=== PATIENT | male | born 1965 | race Caucasian/White ===

== ENCOUNTER 2024-03-29 15:48 | Inpatient (IN) | payer OTHER, SELFPAY ==
[2024-03-29] VITALS (7 sets, daily range): BP systolic 135–148; BP diastolic 65–94; BMI 28.6; BMI 28.5
[2024-03-29 09:49] LABS: % Basophils 0.5 % (0-2); % Eosinophils 1.6 % (0-6); % Immature Granulocytes 0.4 % (0-0.5); % Monocytes 9.1 % (1.7-9.3); % Neutrophils 70.4 % (42.2-75.2); Absolute Eosinophils 0.1 10^3/uL (0-0.7); Absolute Lymphocytes 1.5 10^3/uL (1.2-3.4); Absolute Monocytes 0.8 10^3/uL (0.1-0.6); Absolute Neutrophils 5.9 10^3/uL (1.4-6.5); Hematocrit 41.5 % (39.0-52.0); Hemoglobin 15.2 g/dL (13.0-18.0); Mean Corp Hgb Conc. 36.6 g/dL (33.0-37.0); Mean Corpuscular Hgb 31.7 pg (27.0-31.0); Mean Corpuscular Volume 86.5 fL (80.0-94.0); Mean Platelet Volume 8.9 fL (7.4-10.4); Nucleated Red Blood Cells % 0 % (-); Platelet Count 234 10^3/uL (130-400); Red Cell Dist. Width 12.1 % (11.5-14.5); White Blood Cell Count 8.4 10^3/uL (4.8-10.8)
[2024-03-29 09:58] LABS: INR 0.98
[2024-03-29 10:08] LABS: ALT (SGPT) 33 U/L (0-50); AST (SGOT) 24 U/L (17-59); Albumin 4.1 g/dl (3.5-5.0); Alkaline Phosphatase 71 U/L (38-126); Blood Urea Nitrogen 14 mg/dl (9-20); Calcium 9.5 mg/dl (8.4-10.2); Carbon Dioxide 25 mmol/L (22-30); Chloride 105 mmol/L (98-107); Glucose 106 mg/dl (70-99); Potassium 4.5 mmol/L (3.5-5.1); Sodium 136 mmol/L (135-145); Total Bilirubin 0.9 mg/dl (0.2-1.3); Total Protein 6.6 g/dl (6.3-8.2); eGFR > 60.00
[2024-03-29 10:12] LABS: Troponin I 0.019 ng/ml
--- NOTE | 2024-03-29 10:30 | ED.GENMED ---
History of Present Illness
General
Chief Complaint: Cardiac Symptoms
Time Seen by Provider: 03/29/24 10:14
History of Present Illness
History of Present Illness:
Patient is a 58-year-old man presenting to the emergency department with chest pain. Patient states that 2 days ago he started develop left-sided diffuse chest pain. It is worse with inhalation. He does state that he was diagnosed with pleurisy
many years ago. He is unsure if he was ever worked up for a blood clot. He denies any exertional chest pain. No fevers or chills. No nausea or vomiting. No URI symptoms. It is a sharp pain. No leg swelling hemoptysis recent travel history of
malignancy. He does state that his parents had blood clots but he believes that they were triggered secondary to surgeries. He denies any back pain. No numbness or tingling.
Past History
Past History
ED Past Medical History: GERD
ED Past Surgical History: None
Social History
Tobacco: Non-smoker
Alcohol: Daily
Drug: None
Personal:
Living: with family
Employment: Employed
Phy Exam
Physical Exam
Physical Exam:
GENERAL: in no acute distress
HEENT: normocephalic, extraocular movements intact, moist oral mucosa
NECK: normal inspection
RESPIRATORY: no respiratory distress, crackles at left base
CARDIOVASCULAR: regular rate and rhythm, 2+ radial pulses bilaterally
ABDOMEN/: soft, non-distended, non-tender to palpation, no rebound or guarding
EXTREMITIES: non-tender, no edema/swelling
NEUROLOGIC: awake and alert, moves all extremities
SKIN: warm
Scores
PESI
Age: 58
Sex: Male
History of cancer: No
History of heart failure: No
History of chronic lung disease: No
Heart rate >/= 110: Yes
Systolic BP <100 mmHg: No
Respiratory rate >/= 30: No
Temperature <36�C/96.8�F: No
Altered mental status (disorientation, lethargy, stupor, or coma): No
O2 saturation <90%: No
Score: 87
Class: Class 3: <106 (moderate mortality 3.2-7.1%)
Course
Orders/Labs/Results
Orders:
Orders
03/29/24 09:17
EKG [Electrocardiogram (*1)] Stat
Reason for Study: Chest Pain
03/29/24 09:18
EKG- Treatment ONCE
03/29/24 09:33
CMP [Comprehensive Metabolic Panel] Urgent
Complete Blood Count/With Diff Urgent
D-Dimer Urgent
Comment: ADD ON
PT/INR [Prothrombin Time] Urgent
Troponin I Urgent
03/29/24 10:29
Add On- LAB Urgent
Tests Added?: D Dimer
03/29/24 10:30
Chest [CR Chest - 2 Views ] Urgent
Comment:
Reason For Exam: chest pain
03/29/24 12:26
CT Chest Pe Study Urgent
Comment:
Reason For Exam: dimer elevated
03/29/24 12:36
Troponin I Routine
Abnormal Lab Results
03/29/24
09:33
MCH 31.7 H pg
(27.0-31.0)
Absolute Monos (auto) 0.8 H 10^3/uL
(0.1-0.6)
Lymphocytes % 18.0 L %
(20.5-51.1)
D-Dimer 3.85 H ug/mlFEU
(0.00-0.50)
Glucose 106 H mg/dl
(70-99)
03/29/24 09:33
03/29/24 09:33
Vital Signs
Initial and Last Documented VS:
Initial Vital Signs
Temp Pulse Resp BP Pulse Ox
98.8 F 97 18 142/91 97
03/29/24 09:29 03/29/24 09:29 03/29/24 09:29 03/29/24 09:29 03/29/24 09:29
Last Documented Vital Signs
Temp Pulse Resp BP Pulse Ox
98.8 F 83 16 135/87 98
03/29/24 09:29 03/29/24 12:00 03/29/24 12:00 03/29/24 12:00 03/29/24 11:30
MDM/Problems Addressed
Differential Diagnosis Includes:
Patient is a 58-year-old man presenting to the emergency department with 2 days of chest pain. Vitals are unremarkable and exam is reassuring. Differential is broad but consists of a ACS versus costochondritis versus PE though less likely as he is
not hypoxic or tachycardic. Given that it is pleuritic will obtain D-dimer. Will check an x-ray. Troponin is negative however will obtain delta. Otherwise blood work unremarkable
*Critical Care Note
Total Time (30-74mins, 75-104mins- exclusive of procedures): Not Applicable
Update Note
Update Note:
D-dimer is positive. Received critical call from radiology as patient does have bilateral PE without any RV strain. On reassessment patient is having some pain. On ambulation he did become tachycardic to the 130s. His oxygen has been normal.
After shared decision making we will admit. Discussed with hospitalist who accepted patient for admission. Will start patient on heparin
ED Attending Note
-
Portions of this chart may have been created with voice recognition software.� Occasional wrong word or��sound alike� substitutions may have occurred due to the inherent limitations of voice recognition software.
Discharge Plan
Departure
Patient Disposition: Admit
Date of Disposition: 03/29/24
Time of Disposition: 14:27
Admit to doctor: clarissa
Presentation/result/management discussed w/ accepting MD/DO: Hospitalist
Discharge Problem:
Pulmonary embolism
Prescriptions:
No Action
alprazolam 0.5 MG tablet
0.5 mg PO [id number] PRN (Reason: anxiety)
zolpidem 10 MG tablet
10 mg PO HSPRN PRN (Reason: insomnia)
ibuprofen 200 MG tablet
400 mg PO DAILY
acetaminophen [Tylenol] 325 mg Tablet
650 mg PO DAILYPRN PRN (Reason: mild pain)
Tums 300 mg (750 mg) Tablet,Chewable
300 mg PO BIDPRN PRN (Reason: stomach issues)
simethicone [Gas-X] 80 mg Tablet,Chewable
80 mg PO BIDPRN PRN (Reason: gas)
Pepto-Bismol 525 mg/15 mL Suspension
525 mg PO BIDPRN PRN (Reason: GI issues)
Referrals:
Fernando Hodgson MD [Family Provider] -
Interventions
Interventions:
*Risk Screen - Suicide Last Done: 03/29/24 10:18
*General Assessment Last Done: 03/29/24 10:18
*Neglect/Abuse Screening Last Done: 03/29/24 10:18
ED- Fall Risk Assessment Last Done: 03/29/24 10:22
*ED COVID-19 Vaccine History Last Done: 03/29/24 10:18
ED- Pulmonary Assessment Last Done: 03/29/24 10:22
ED- Cardiac Assessment Last Done: 03/29/24 10:22
Discharge Date and Time
Print Language: ICELANDIC
[2024-03-29 12:02] LABS: D-Dimer 3.85 ug/mlFEU (0.00-0.50)
[2024-03-29 13:22] LABS: Troponin I < 0.012 ng/ml
[2024-03-29] MEDS: MYLICON 80 MG PO ×2 (14:25→21:02)
--- NOTE | 2024-03-29 14:52 | HPS.HSE ---
Addendum entered and electronically signed by Hunter Barnes MD 03/29/24 16:49:
I saw and examined the patient.
The PRINT PRODUCTION COORDINATOR or PA's note was reviewed and I agree with the note.
Comment:
58-year-old man presented to us with left sided chest pain for past few days, found to have pleuretic chest pain. Sits for work most of the day, no recent travel. Fam hx of clots afte rknee surgery from father. 4 alcohol drinks per day. HR 83, RR
24, 98% on RA. BP stable. Moderate volume bilateral pulmonary embolism, most prominent in the left lower lobe on CT. Trop neg x 2. Plan: F/u BNP, ECHO. LE Dopplers. Lovenox full dose, CM consulted for eliquis cost.
Original Note:
Family Physician
-
Family Physician: Fernando Hodgson
Chief Complaint
-
left sided chest pain
History of Present Illness
58-year-old man presented to us with left sided chest pain for past few days. It is worse with inhalation and movement. stated sob at times with pain. No fevers or chills. No nausea or vomiting or diarrhea. stated chronic bloating after eating,
which get relieved with Pepto, Tums. denied fever, chills, runny nose,congestion, cough. denied dysuria or hematuria. denied LE swelling or pain. denied recent travel, surgery. dad with clots after knee surgery. his last travel by Air was in December to
[place]. patient works from home. he uses nicotine Pouch as appetite suppressant and stress.
chest CT with b/l PE. heparin ordered. admitting for further management.
Medical History
Past Medical History
Past Medical History: Reports Other
Additional Past Medical History:
GERD
Past Surgical History: Reports None
Social History
Tobacco: Non-smoker
Alcohol: Daily (3-4 vodka daily)
Drug: None
Personal:
Living: With Family
Family History
Family History: Not pertinent
Allergies / Home Medications
Allergies reflects when Allergies were last updated in [facility].
Home Medications with original date entered in [employer]
Allergy/Medication List:
Allergies
Allergy/AdvReac Type Severity Reaction Status Date / Time
ANIMALS Allergy ITCHY EYES Uncoded 03/29/24 09:30
Home Medications
alprazolam 0.5 mg tablet 0.5 mg PO [id number] PRN anxiety 03/26/20
ibuprofen 200 mg tablet 400 mg PO DAILY 03/26/20
zolpidem 10 mg tablet 10 mg PO HSPRN PRN insomnia 03/26/20
acetaminophen 325 mg tablet (Tylenol) 650 mg PO DAILYPRN PRN mild pain 03/29/24
bismuth subsalicylate 525 mg/15 mL oral suspension 525 mg PO BIDPRN PRN GI issues 03/29/24
calcium carbonate (Tums) 300 mg PO BIDPRN PRN stomach issues 03/29/24
simethicone 80 mg chewable tablet 80 mg PO BIDPRN PRN gas 03/29/24
Review of Systems
-
Constitutional: Reports No Symptoms
EENT: Reports No Symptoms
Respiratory: Reports Trouble Breathing
Cardiac: Reports Chest Pain
Abdomen/GI: Reports No Symptoms
: Reports No Symptoms
Musculoskeletal: Reports No Symptoms
Skin: Reports No Symptoms
Neurological: Reports No Symptoms
Endocrine: Reports No Symptoms
Hematologic/Lymphatic: Reports No Symptoms
Psych: Reports No Symptoms
Physical Exam
Vital Signs
Vital Signs
Temp Pulse Resp BP Pulse Ox
98.8 F 83 16 135/87 98
03/29/24 09:29 03/29/24 12:00 03/29/24 12:00 03/29/24 12:00 03/29/24 11:30
Physical Exam
General: Well Developed, Well Nourished and No Apparent Distress
HEENT: NormoCephalic, Moist mucous membranes and Atraumatic
Respiratory: Clear
Cardiac: S1/S2 and Regular Rhythm; No Murmur or Rub
GI: Soft, Non Tender, Non Distended and Normal Bowel Sounds; No Organomegaly
Rectal: Deferred by Provider
Musculoskeletal: No Clubbing, No Cyanosis and No Edema
Skin: No Rash
Neuro: AO x 3 and Nonfocal/grossly intact
Psych: Calm
Laboratory Results
-
03/29/24 09:33
03/29/24 09:33
Laboratory Results
PT 13.0 Sec (11.4-14.6) 03/29/24 09:33
INR 0.98 03/29/24 09:33
APTT Cancelled 03/29/24 14:24
Total Bilirubin 0.9 mg/dl (0.2-1.3) 03/29/24 09:33
AST 24 U/L (17-59) 03/29/24 09:33
ALT 33 U/L (0-50) 03/29/24 09:33
Alkaline Phosphatase 71 U/L (38-126) 03/29/24 09:33
Troponin I < 0.012 ng/ml D 03/29/24 12:36
Data Reviewed
-
CT Scan: Report Reviewed by me
Lab Data: Labs Reviewed by me
Impression/Plan
-
# Bilateral PE with no strain
-CTP with impression of Moderate volume bilateral pulmonary embolism, most prominent in the left lower lobe.No central saddle type pulmonary embolism.No findings to suggest right heart strain.Bibasilar subsegmental atelectasis and tiny left pleural
effusion. Cannot exclude left lower lobe pneumonia.
-Chest x-ray with impression of Minimal left basilar opacification most likely representing subsegmental atelectasis. Pneumonia cannot be excluded.
-Lovenox sq every 12 hours
-obtain ECHO
-trend trop
-duplex of LE
#chronic abdominal bloating
-Tums, Gas X continued
#anxiety
-Xanax continued
#DVT prophylaxis
-Lovenox
#Alcohol dependence
-protocol initiated
-MSAS score
#CODE status
-full code
[2024-03-29 15:07] LABS: APTT 26.7 Sec (23.4-35.0)
[2024-03-29] MEDS: TYLENOL 1000 MG PO (15:40)
--- NOTE | 2024-03-29 16:54 | PTCARENOTE ---
Pt received from ED. Pt ambulated from stretcher to bed with steady gait.
[2024-03-29 17:38] LABS: NT-proBNP 25.1 pg/ml
[2024-03-29 18:27] LABS: GGTP 32 U/L (15-73); Magnesium 1.8 mg/dl (1.6-2.3); Phosphorus 3.2 mg/dl (2.5-4.5)
[2024-03-29 18:30] LABS: Alcohol None Detected
[2024-03-29 18:33] LABS: B-Hydroxybutyrate 0.18 mmol/L (0.02-0.27)
[2024-03-29 18:38] LABS: Troponin I < 0.012 ng/ml
[2024-03-29] MEDS: LOVENOX 90 MG SC (20:07)
[2024-03-29] MEDS: THIAMINE INJECTION 200 MG IV (20:08)
[2024-03-29] MEDS: TYLENOL 650 MG PO (21:02)
[2024-03-29 22:02] LABS: Urine Albumin Negative (Neg - Trace); Urine Bilirubin Negative (Negative); Urine Character Clear (Clear); Urine Color Yellow; Urine Glucose Negative (Negative); Urine Ketone Negative (Negative); Urine Leukocyte Negative (Negative); Urine Nitrite Negative (Negative); Urine Occult Blood Negative (Negative); Urine Urobilinogen Negative (Neg - 1+)
[2024-03-29] MEDS: ULTRAM 25 MG PO (23:46)
[2024-03-30] MEDS: AMBIEN 10 MG PO (00:42)
[2024-03-30 00:48] LABS: Troponin I 0.015 ng/ml
--- NOTE | 2024-03-30 02:24 | PTCARENOTE ---
Pt c/o 810 middle chest pain w/ MOORE. BP 148/94 manually, HR 102, 97% RA. EKG NSR w/ possible left atrial enlargement and nonspecific ST and T wave elevation. Pt stated that he had an episode of pain at home similar to this one but was mostly in his
back. 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 Stat trop and tramadol 25mg ordered (see oct). Prior to tramadol being given, pt stated pain came down to a 3/10. Trop 0.015 and next trop to be drawn at 0630. Pt's pain is a 0/10 after tramadol. Call rodriguez within reach
and plan of care ongoing.
--- NOTE | 2024-03-30 02:25 | W.PN.UPDATE ---
Update Note
Progress Note Update
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 Patient seen and evaluated. patient resting in bed watching TV. Stated he was having chest pain on left side radiated to mid chest for good 15 minutes and it was worse pain than before. Vitals 162/108 HR 102
during the time of pain. Patient took Tylenol PO and Tramadol 25mg PO was given for pain. EKG noted to be nonspecific ST and T wave abnormality. Troponin ordered and is neg at 0.015, next troponin at 0600. Patient reports pain has subsided now.
Presently with PE and is on Lovenox.
[2024-03-30 03:19] VITALS: BP 140/93
[2024-03-30] MEDS: TYLENOL 650 MG PO (05:48)
[2024-03-30 06:28] LABS: Hematocrit 39.8 % (39.0-52.0); Hemoglobin 14.6 g/dL (13.0-18.0); Mean Corp Hgb Conc. 36.7 g/dL (33.0-37.0); Mean Corpuscular Hgb 31.9 pg (27.0-31.0); Mean Corpuscular Volume 87.1 fL (80.0-94.0); Mean Platelet Volume 8.7 fL (7.4-10.4); Platelet Count 222 10^3/uL (130-400); Red Blood Cell Count 4.57 10^6/uL (4.70-6.10); White Blood Cell Count 9.4 10^3/uL (4.8-10.8)
[2024-03-30 06:38] LABS: Fibrinogen 642 MG/DL (199-459)
[2024-03-30 06:57] LABS: Troponin I < 0.012 ng/ml
[2024-03-30 07:35] VITALS: BP 128/88
[2024-03-30] MEDS: LOVENOX 90 MG SC (08:59)
[2024-03-30] MEDS: THIAMINE INJECTION 200 MG IV (09:00)
[2024-03-30] MEDS: FOLVITE 1 MG PO (09:00)
[2024-03-30 11:24] VITALS: BP 136/87
--- NOTE | 2024-03-30 12:21 | W.PN.HOSP.TC ---
Addendum entered and electronically signed by Hunter Barnes MD 03/31/24 16:45:
[id number]
Original Note:
Today's Communication/Plan
-
DC on Eliquis
F/u Hematology and PCP outpatient
NO strenous activity 2-3 weeks and until cleared by PCP
Assessment / Plan
Assessment / Plan
Physical Exam
General: Well Developed, Well Nourished and No Apparent Distress
HEENT: NormoCephalic, Moist mucous membranes and Atraumatic
Respiratory: Clear
Cardiac: S1/S2 and Regular Rhythm; No Murmur or Rub
GI: Soft, Non Tender, Non Distended and Normal Bowel Sounds; No Organomegaly
Rectal: Deferred by Provider
Musculoskeletal: No Clubbing, No Cyanosis and No Edema
Skin: No Rash
Neuro: AO x 3 and Nonfocal/grossly intact
Psych: Calm
# Bilateral PE
#Pleuritic Chest Pain
-CTP with impression of Moderate volume bilateral pulmonary embolism, most prominent in the left lower lobe.No central saddle type pulmonary embolism.No findings to suggest right heart strain.Bibasilar subsegmental atelectasis and tiny left pleural
effusion. Cannot exclude left lower lobe pneumonia.
-Lovenox sq every 12 hours - transition to Eliquis upon DC for PE - length will be determined outpatient
-ECHO pending
-LE dopplers negative
-Trops negative; probnp 25.1
-f/u hematology outpatient
-educated on continued mobilization; has father who had clot
#chronic abdominal bloating
-Tums, Gas X continued
#anxiety
-Xanax continued
#DVT prophylaxis
-Lovenox
#Alcohol dependence
-no withdrawal symptoms
#CODE status
-full code
More than 30 minutes spent in discharge including
Final examination of the patient
Summarizing hospital stay
Instructions for continuing care to all relevant caregivers
Preparation of discharge records, prescriptions, and referral forms
Total time spent (35 in minutes):
Anticipated Discharge: Today
Subjective/Interval History
-
Date of Service: March 30, 2024
no acute events
Objective Data
-
Labs:
Laboratory Results
03/30/24
06:22
WBC 9.4
Hgb 14.6
Hct 39.8
Plt Count 222
Vital Signs:
Vital Signs
Temp Pulse Resp BP Pulse Ox
97.8 F 71 16 136/87 96
03/30/24 11:24 03/30/24 11:24 03/30/24 11:24 03/30/24 11:24 03/30/24 11:24
I&O
03/29/24 03/30/24 03/31/24
06:59 06:59 06:59
Intake Total 720 / 720
Output Total 300 / 300
Balance 420 / 420
Review of Systems
-
History Source: Patient
All other systems: Not reviewed unless documented
Data Reviewed
-
Diagnostic Radiology: Image personally visualized and interpreted and Report Reviewed by me
CT Scan: Image personally visualized and interpreted and Report Reviewed by me
Ultrasound: Report Reviewed by me
Labs: Labs Reviewed by me
--- NOTE | 2024-03-30 12:27 | W.DS.TRANS ---
DC Summary - Recorder Of Deeds
-
Discharge Instructions:
Discharge Diagnosis/Procedures
Bilateral PE
Diet Low Fat,Low Cholesterol
Activity No strenuous activity
Additional Activity 2-3 weeks no strenuous activity - f/u with PCP
Instructions:
Stand-Alone Forms:
Changes to Home Medications: Yes
Discharge Medications:
DC Medications w/original date entered in [facility]
alprazolam 0.5 mg tablet 0.5 mg PO [id number] PRN anxiety 03/26/20
zolpidem 10 mg tablet 10 mg PO HSPRN PRN insomnia 03/26/20
acetaminophen 325 mg tablet (Tylenol) 650 mg PO DAILYPRN PRN mild pain 03/29/24
bismuth subsalicylate 525 mg/15 mL oral suspension 525 mg PO BIDPRN PRN GI issues 03/29/24
calcium carbonate (Tums) 300 mg PO BIDPRN PRN stomach issues 03/29/24
simethicone 80 mg chewable tablet 80 mg PO BIDPRN PRN gas 03/29/24
apixaban 5 mg (74 tabs) tablets in a dose pack (Eliquis DVT-PE Treat 30D Start) See Rx Instructions PO .COMPLEX #74 ea 03/30/24
Home Medication Changes
apixaban 5 mg (74 tabs) tablets in a dose pack (Eliquis DVT-PE Treat 30D Start) See Rx Instructions PO .COMPLEX #74 ea 03/30/24
Pending Results: No
[2024-03-30] MEDS: TUMS EX (EXTRA STRENGTH) CHEWABLE 1 TABLET PO (14:32)
[2024-03-30] MEDS: ULTRAM 25 MG PO (14:43)
--- NOTE | 2024-03-30 14:44 | CM ---
Reviewed chart, met with patient and his at bedside to obtain information for assessment. Patent stated that he lives with his in a two story home, with two steps to enter. Patient denied any DME in his home. He is independent with all of
his ADLs, personal care, bathing and dressing. 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 He is able to drive however his primarily does the driving.
He has never had VN services.
He has not been to a SNF
Patient denied that he needs ETOH counseling or resources.
Patient has a prescription plan and uses, [facility] in [place] for all of his medications.
His PCP is, Dr. Fernando Hodgson.
Patient was provided with a 30 day free trial of Eliquis and a monthly 10 dollar coupon for subsequent fills.
Plan: Case management will continue to follow and assist with discharge planning. Home when stable.
[2024-03-30 15:29] VITALS: BP 151/92
--- NOTE | 2024-03-30 18:29 | W.PN.UPDATE ---
Update Note
Progress Note Update
Called pharmacy since there were some issues with coverage-->Gave new prescription 5 mg bid (covered by coupon) but instructed 10 mg bid initially to follow directions as instructed for loading dose. Discharge physician notified and can follow up
tomorrow for any clarification and/or PCP as outpatient.
== END 2024-03-30 17:23 | disposition home or self-care (01) | DRG 176 ==
LOC: 3 WEST ACU 15:48
PROVIDERS: Emergency Medicine; Nurse Practitioner Gerontology; Registered Nurse; ADMITTING PHYSICIAN Internal Medicine; EMERGENCY PHYSICIAN Student in an Organized Health Care Education/Training Program; FAMILY PHYSICIAN Family Medicine
DX: I26.99 Other pulmonary embolism without acute cor pulmonale (principal); J98.11 Atelectasis; J90 Pleural effusion, not elsewhere classified; F10.20 Alcohol dependence, uncomplicated; F41.9 Anxiety disorder, unspecified; R14.0 Abdominal distension (gaseous); Z79.899 Other long term (current) drug therapy
CPT/HCPCS: 71046; 71275; 80053; 81003; 82010; 82077; 82977; 83036; 83735; 83880; 84100; 84484; 85025; 85027; 85379; 85384; 85610; 85730; 93005; 93306; 93970; 96374; 96376; 99285; Q9967

== ENCOUNTER → 2024-04-11 10:32 | Outpatient (REF) | payer OTHER, SELFPAY ==
[2024-04-11 12:58] LABS: ALT (SGPT) 56 U/L (0-50); AST (SGOT) 37 U/L (17-59); Albumin 4.4 g/dl (3.5-5.0); Alkaline Phosphatase 72 U/L (38-126); Blood Urea Nitrogen 13 mg/dl (9-20); Carbon Dioxide 28 mmol/L (22-30); Chloride 102 mmol/L (98-107); Glucose 94 mg/dl (70-99); Sodium 140 mmol/L (135-145); Total Bilirubin 0.8 mg/dl (0.2-1.3); Total Protein 6.9 g/dl (6.3-8.2); eGFR > 60.00
== END ==
LOC: REG 10:32
PROVIDERS: ATTENDING PHYSICIAN Family Medicine
DX: J90 Pleural effusion, not elsewhere classified (principal); I26.99 Other pulmonary embolism without acute cor pulmonale; R93.89 Abnormal findings on diagnostic imaging of other specified body structures
CPT/HCPCS: 36415; 80053

== ENCOUNTER → 2024-04-18 07:08 | Outpatient (REF) | payer OTHER, SELFPAY | LOC: MRI 3T 07:08 | PROVIDERS: ATTENDING PHYSICIAN Family Medicine | DX: J90 Pleural effusion, not elsewhere classified (principal); I26.99 Other pulmonary embolism without acute cor pulmonale; R93.89 Abnormal findings on diagnostic imaging of other specified body structures | CPT/HCPCS: 74181 ==

== ENCOUNTER → 2024-04-19 07:39 | Outpatient (REF) | payer OTHER, SELFPAY | LOC: RAD 07:39 | PROVIDERS: ATTENDING PHYSICIAN Internal Medicine Hematology & Oncology; FAMILY PHYSICIAN Family Medicine | DX: I26.99 Other pulmonary embolism without acute cor pulmonale (principal) | CPT/HCPCS: 71275; Q9967 ==

== ENCOUNTER → 2024-07-20 09:21 | Outpatient (REF) | payer OTHER, SELFPAY | LOC: RAD 09:21 | PROVIDERS: ATTENDING PHYSICIAN Internal Medicine; FAMILY PHYSICIAN Family Medicine | DX: R14.0 Abdominal distension (gaseous) (principal) | CPT/HCPCS: 74019 ==

== ENCOUNTER 2024-08-23 06:29 | Day surgery (SDC) | payer OTHER, SELFPAY | END 2024-08-23 14:01 | disposition home or self-care (01) | LOC: GI 06:29 | PROVIDERS: ATTENDING PHYSICIAN Internal Medicine | DX: Z12.11 Encounter for screening for malignant neoplasm of colon (principal); D12.0 Benign neoplasm of cecum; D12.3 Benign neoplasm of transverse colon; K62.1 Rectal polyp; Z86.0101 Personal history of adenomatous and serrated colon polyps | CPT/HCPCS: 45385; 45380; 88305 ==

== ENCOUNTER → 2025-04-26 10:04 | Outpatient (REF) | payer OTHER, SELFPAY | LOC: RAD 10:04 | PROVIDERS: ATTENDING PHYSICIAN Nurse Practitioner; FAMILY PHYSICIAN Family Medicine | DX: R06.02 Shortness of breath (principal) | CPT/HCPCS: 75574; Q9967 ==

== ENCOUNTER 2025-05-07 06:06 | Day surgery (SDC) | payer OTHER, SELFPAY ==
[2025-05-02 13:41] VITALS: BMI 25.8
[2025-05-02 14:00] LABS: Hematocrit 40.1 % (39.0-52.0); Hemoglobin 14.7 g/dL (13.0-18.0); Mean Corp Hgb Conc. 36.7 g/dL (33.0-37.0); Mean Corpuscular Volume 90.1 fL (80.0-94.0); Nucleated Red Blood Cells % 0 % (-); Platelet Count 230 10^3/uL (130-400); Red Cell Dist. Width 11.9 % (11.5-14.5)
[2025-05-02 14:33] LABS: ALT (SGPT) 30 U/L (0-50); AST (SGOT) 21 U/L (17-59); Albumin 4.1 g/dl (3.5-5.0); Alkaline Phosphatase 47 U/L (38-126); Blood Urea Nitrogen 15 mg/dl (9-20); Calcium 9.2 mg/dl (8.4-10.2); Carbon Dioxide 25 mmol/L (22-30); Chloride 105 mmol/L (98-107); Estimated Creatinine Clearance 81 ml/min; Glucose 97 mg/dl (70-99); Potassium 4.3 mmol/L (3.5-5.1); Sodium 136 mmol/L (135-145); Total Protein 6.4 g/dl (6.3-8.2); eGFR > 60.00
[2025-05-07] VITALS (16 sets, daily range): BP systolic 108–136; BP diastolic 65–113; BMI 25.4
[2025-05-07] MEDS: LOW STRENGTH ASPIRIN 81 MG PO (07:34)
[2025-05-07] MEDS: NSS 234 ML IV (07:35)
--- NOTE | 2025-05-07 09:05 | ITS.CL.PN ---
Director Financial Services - Procedure Note
Procedure
Procedure Note:
CARDIAC CATHETERIZATION REPORT
Date of Procedure: 05/07/2025
Referring: Dr. Lv Kidd,
Indication: severe coronary artery disease on coronary CTA, anginal chest pain
PROCEDURE(S)
1. right heart catheterization
2. left heart catheterization
3. coronary angiography
ACCESS
1. 6F right radial artery (closure: radial band)
2. 5F right antecubital vein (closure: manual hemostasis)
CATHETERS
1. 5F Zenia-Sury
2. 6F JR4
3. 6F JL3.5
MODERATE SEDATION: 30 minutes of moderate sedation was utilized. An independent remote medical coder was present to assist with and help manage the patient's level of consciousness and physiologic status.
HEMODYNAMIC DATA
LV 106/8 (EDP 17) mmHg
AO 110/66 (mean 80) mmHg
RA 7 mmHg
RV 21/3 (EDP 8) mmHg
PA 21/11 (mean 15) mmHg
PCWP 9 mmHg
SaO2 97.6%
SvO2 74.7%
Hb 14.0 g/dL
CO/CI 5.55/2.87 L/min/m2
SVR 1283 dsc*-5
PVR 1.1 Wood units
CORONARY ANGIOGRAPHY
Dominance: right
LM: Large with mild distal tapering
LAD: Large vessel giving rise to a moderate caliber high rising D1/ramus, small D2, and small D3 before wrapping around the apex. There is mild diffuse disease only.
LCx: Large vessel giving rise to a small OM1, small OM2, and large branching OM3. There is mild diffuse disease only.
RCA: Large vessel giving rise to moderate caliber RPDA and 2 moderate caliber RPL branches. There is diffuse mild disease throughout with notably slow flow on injection.
RADIATION: dose 370 mGy; DAP 30.2 Gy*cm2; fluoroscopy time 3.9 min
CONCLUSIONS
1. Normal biventricular filling pressures, normal pulmonary artery pressure, and normal cardiac output
2. No evidence of aortic stenosis on hemodynamic pullback
3. Nonobstructive coronary artery disease and right dominant system
RECOMMENDATIONS
1. Continue aggressive secondary prevention of coronary artery disease
2. Workup for etiology of dyspnea on exertion not related to congestive heart failure or obstructive epicardial coronary artery disease
Copy to: Dr. Lv Kidd DO (senior telecommunications technician); IMAN Leigh (cardiology); Dr. Fernando Hodgson MD (PCP)
Signed: Otis Dyson MD, PhD
[2025-05-07] MEDS: NSS 360 IV (09:43)
== END 2025-05-07 12:00 | disposition home or self-care (01) ==
LOC: CATH 06:06
PROVIDERS: ATTENDING PHYSICIAN Student in an Organized Health Care Education/Training Program; FAMILY PHYSICIAN Family Medicine; OTHER PHYSICIAN Student in an Organized Health Care Education/Training Program
DX: I25.119 Atherosclerotic heart disease of native coronary artery with unspecified angina pectoris (principal); Z86.711 Personal history of pulmonary embolism; Z79.01 Long term (current) use of anticoagulants; E78.5 Hyperlipidemia, unspecified; F32.A Depression, unspecified; F41.9 Anxiety disorder, unspecified; I10 Essential (primary) hypertension; K76.0 Fatty (change of) liver, not elsewhere classified; Z79.82 Long term (current) use of aspirin; Z79.899 Other long term (current) drug therapy; Z86.0100 Personal history of colon polyps, unspecified
CPT/HCPCS: 99152; 99153; 36415; 80053; 85025; 93005; 93460; C1769; C1894; Q9967